=== PATIENT | male | born 1950 | race Caucasian/White ===

== ENCOUNTER 2018-12-09 13:07 | Emergency (ER) | payer MEDICARE ==
[2018-12-09 13:58] LABS: HEMATOCRIT 47.8 % (39.0-50.0); HEMOGLOBIN 15.9 g/dl (14.0-18.0); IMMATURE GRANULOCYTES 0.3 % (0.0-5.0); MEAN CELL VOLUME 88.5 fL CALC (80.0-100.0); MEAN CORPUSCULAR HGB 29.4 pG CALC (26.0-32.0); MEAN CORPUSCULAR HGB CONC 33.3 g/L CALC (32.0-36.0); NEUT# 9.93 thou/uL (1.82-7.42); RED BLOOD COUNT 5.4 mill/uL (4.70-6.10); RED CELL DISTRI WIDTH 13.4 % (11.5-15.5)
[2018-12-09 14:11] LABS: ALBUMIN 4.5 g/dL (3.2-5.0); ALKALINE PHOSPHATASE 75 u/l (38-126); AMYLASE 68 u/l (30-110); ANION GAP 18 (6-22 (CALC)); BILIRUBIN, TOTAL 1.2 mg/dL (0.0-1.4); BUN 22 mg/dL (8-23); BUN/CREATININE RATIO 13 (12-20 (CALC)); CARBON DIOXIDE 24 mmol/l (22-30); CHLORIDE 101 mmol/l (95-108); CREATININE 1.6 mg/dL (0.7-1.3); GFR 43 ML/MIN (>=60 (CALC)); GFR FOR AFR.AMER. 53 ML/MIN (>=60 (CALC)); LIPASE 31 u/l (23-300); POTASSIUM 4.4 mmol/l (3.5-5.1); SGOT/AST 25 u/l (19-48); SODIUM 139 mmol/l (137-146); TOTAL PROTEIN 7.9 g/dL (6.3-8.2)
[2018-12-09 14:23] LABS: MYOGLOBIN 78 ng/mL (0 - 121)
[2018-12-09 15:34] LABS: URINE BLOOD DIPSTICK TRACE-INTACT (NEGATIVE); URINE COLOR YELLOW; URINE GLUCOSE - DIPSTICK NEGATIVE (NEGATIVE); URINE KETONE 40 mg/dL (NEGATIVE); URINE LEUK ESTERASE NEGATIVE (NEGATIVE); URINE NITRITE - DIPSTICK NEGATIVE (Negative); URINE PROTEIN - DIPSTICK NEGATIVE (NEG-TRACE); URINE SPECIFIC GRAVITY >=1.030; URINE UROBILINOGEN - DIPSTICK 0.2 E.U./dL (0.2)
[2018-12-09 15:58] LABS: URINE BILIRUBIN - DIPSTICK SMALL (NEGATIVE)
[2018-12-09] MEDS ORDERED: TAMSULOSIN0.4 MG PO (16:07)
[2018-12-09] MEDS ORDERED: ZOFRAN ODT4 MG PO (16:07)
[2018-12-09] MEDS ORDERED: LORTAB 1010 MG PO (16:07)
[2018-12-09 16:41] VITALS: BP 130/76
== END 2018-12-09 17:02 | disposition home or self-care (01) ==
LOC: ED 13:07
PROVIDERS: Emergency Medicine
DX: N20.0 Calculus of kidney (principal); R10.13 Epigastric pain; R11.0 Nausea
CPT/HCPCS: S0164

== ENCOUNTER 2022-10-21 00:09 | Emergency (ER) | payer MEDICARE ==
[2022-10-21] VITALS (11 sets, daily range): BP systolic 129–141; BP diastolic 64–81
[~2022-10-21] VITALS: Ht 185.4 cm; Wt 86.3 kg
[~2022-10-21 00:09] MED LIST: LORTAB 1010 MG PO; TAMSULOSIN0.4 MG PO; ZOFRAN ODT4 MG PO
[2022-10-21 00:38] LABS: BASO% 0.3 % (0-3); EOS% 1.6 % (0-8); HEMATOCRIT 49.2 % (39.0-50.0); HEMOGLOBIN 15.9 g/dl (14.0-18.0); IMMATURE GRANULOCYTES 0.1 % (0.0-5.0); LYMPH% 8.9 % (15-41); MEAN CELL VOLUME 91.4 fL CALC (80.0-100.0); MEAN CORPUSCULAR HGB 29.6 pG CALC (26.0-32.0); MEAN CORPUSCULAR HGB CONC 32.3 g/dL CAL (32.0-36.0); MONO% 14.3 % (2-13); NEUT# 5.13 thou/uL (1.82-7.42); NEUT% 74.8 % (42-76); RED BLOOD COUNT 5.38 mill/uL (4.70-6.10); RED CELL DISTRI WIDTH 13.1 % (11.5-15.5)
[2022-10-21 01:00] LABS: ALBUMIN 4.4 g/dL (3.2-5.0); ALKALINE PHOSPHATASE 70 u/l (38-126); ANION GAP 9 (6-22 (CALC)); BILIRUBIN, TOTAL 0.9 mg/dL (0.2-1.3); BUN 10 mg/dL (8-23); BUN/CREATININE RATIO 10 (12-20 (CALC)); CARBON DIOXIDE 26 mmol/l (22-30); CHLORIDE 104 mmol/l (95-108); GFR FOR AFR.AMER. > 60 ML/MIN (>=60 (CALC)); GFR OTHER RACES > 60 ML/MIN (>=60 (CALC)); POTASSIUM 4.1 mmol/l (3.5-5.1); SODIUM 134 mmol/l (137-146); TOTAL PROTEIN 7.5 g/dL (6.3-8.2)
[2022-10-21 01:07] LABS: SGOT/AST 46 u/l (19-48)
[2022-10-21 02:38] LABS: URINE BILIRUBIN - DIPSTICK NEGATIVE (NEGATIVE); URINE BLOOD DIPSTICK NEGATIVE (NEGATIVE); URINE COLOR YELLOW; URINE GLUCOSE - DIPSTICK NEGATIVE (NEGATIVE); URINE KETONE 40 mg/dL (NEGATIVE); URINE LEUK ESTERASE NEGATIVE (NEGATIVE); URINE PH 6.5 (4.5-8.0); URINE PROTEIN - DIPSTICK NEGATIVE (NEG-TRACE)
[2022-10-21 02:40] LABS: URINE NITRITE - DIPSTICK NEGATIVE (Negative)
== END 2022-10-21 03:01 | disposition home or self-care (01) ==
LOC: ED 00:09
PROVIDERS: Family Medicine
DX: E86.0 Dehydration (principal); R39.198 Other difficulties with micturition